=== PATIENT | male | born 1960 | race Caucasian/White ===

== ENCOUNTER → 2024-05-08 14:33 | Outpatient (BNVA) | payer BC, SELFPAY | PROVIDERS: Visit Provider Family Medicine | DX: R31.0 Gross hematuria (principal) | CPT/HCPCS: 81000; 87086 ==

== ENCOUNTER 2024-05-23 12:31 | Outpatient (CLI) | payer BC, SELFPAY ==
--- NOTE | 2024-05-23 15:30 | CT_ITS ---
WS: [id number] CT ABDOMEN AND PELVIS NONCONTRAST HISTORY: gross hematuria TECHNIQUE: Imaging performed through the abdomen and pelvis. Coronal and sagittal reformats are submi tted. All CT scans at [facility] use at least one of these dose optimization techniques: auto mated exposure control; mA and/or kV adjustment per patient size (includes targeted exams where dose is matched to clinical indication); or iterative reconstruction. DLP: 1127.20 mGy.cm COMPARISON: None available. Lower thorax: Lung bases are clear. Visualized heart is normal. No hiatal hernia. Liver: Normal size liver. No mass or bile duct dilatation. Gallbladder: Normal gallbladder. No pericholecystic fluid or cholelithiasis. No gallbladder wall thic [place]. Pancreas: Normal size and attenuation. Normal pancreatic duct. No pancreatitis or mass. Spleen: Normal spleen with granulomata. Adrenal glands: Normal. No mass. Right kidney: Normal size kidney. Nonobstructing 5 mm calcification in the lower pole. No hydronephro sis. Normal size RIGHT ureter. Left kidney: Very mild perinephric stranding. Hyperdense focus in the superior pole measures 5 mm. No renal obstruction or ureteral obstruction. Aorta: Mild atherosclerosis abdominal aorta with no aneurysm. No free fluid, intraperitoneal air or significant lymphadenopathy. GI tract: Stomach is moderately distended with food products. No small bowel obstruction. Moderate di ffuse constipation. Increasing constipation through the sigmoid. Numerous diverticula. Sigmoid divert icula without acute diverticulitis. Abdominal wall: Tiny umbilical hernia contains fat. Pelvis: No free fluid or adenopathy. Urinary bladder is moderately well distended. Mild prostate enla rgement encroaching into the bladder. Patent bilateral inguinal canals containing fat only. Osseous structures: Osteonecrosis RIGHT femoral head. CT/CT abdomen pelvis wo con [id number] IMPRESSION: 1. No renal or ureteral obstruction. 2. Nonobstructing 5 mm calcification lower pole RIGHT kidney. 3. Moderate sigmoid diverticulosis without acute diverticulitis. 4. No ascites or adenopathy. 5. Prostate enlargement. 6. Hyperdense focus superior pole LEFT kidney measures 5 mm. Consider hemorrha gic cyst.
== END 2024-05-23 12:32 | disposition home or self-care (01) ==
LOC: RAD 12:32
PROVIDERS: PCP Family Medicine; Visit Provider Family Medicine
DX: K57.90 Diverticulosis of intestine, part unspecified, without perforation or abscess without bleeding (principal); N20.0 Calculus of kidney; K59.00 Constipation, unspecified; R31.0 Gross hematuria
CPT/HCPCS: 74176

== ENCOUNTER → 2024-06-11 13:23 | Outpatient (BNVA) | payer BC, SELFPAY | PROVIDERS: PCP Family Medicine; Visit Provider Family Medicine | DX: Z00.00 Encounter for general adult medical examination without abnormal findings (principal) | CPT/HCPCS: 80053; 80061; 84443; 85025; G0103 ==

== ENCOUNTER → 2024-09-06 13:31 | Outpatient (BNVA) | payer BC, SELFPAY | PROVIDERS: PCP Family Medicine; Visit Provider Family Medicine | DX: R97.20 Elevated prostate specific antigen [PSA] (principal); R31.9 Hematuria, unspecified | CPT/HCPCS: 84154; 87086 ==